=== PATIENT | male | born 1990 | race Caucasian/White ===

== ENCOUNTER 2017-02-10 17:52 | Emergency (ER) | payer BC ==
[2017-02-10 18:01] VITALS: TEMP 98.4
--- NOTE | 2017-02-10 18:06 | EDPHY ---
H & P Time Seen by Provider: 02/10/17 18:03 HPI/ROS: CHIEF COMPLAINT: Right knee pain HISTORY OF PRESENT ILLNESS: 26-year-old male in the ER via private vehicle complaining of acute right medial knee pain. History of right ACL repair in October 2016 by orthopedic surgeon Agustín. He is visiting [place] and was playing soccer earlier today felt acute right medial knee pain. He is able to bear weight albeit with pain. He also notes over the past several weeks believes he may have injured his meniscus notes that he has been having locking out issues. PHYSICAL EXAM (Prior to examination, patient consented to physical exam, hands were washed and my usual and customary physical exam procedures followed) 1) GENERAL: Well-developed, well-nourished, alert and oriented. Appears to be in no acute distress. 2) HEAD: Normocephalic 3) HEENT: Pupils equal, round, reactive to light bilaterally. 4) LUNGS: Breathing comfortably. 5) MUSCULOSKELETAL: Exam of the right knee shows soft tissue swelling. . No gross instability on exam. Tender to palpation medial knee. Compartments are soft. 6) SKIN: intact 7) VASCULAR: DP,PT pulses and cap refill present and brisk distally DIFFERENTIAL DIAGNOSIS: in no particular order including but not limited to fracture, sprain, compartment syndrome, septic arthritis, DVT Smoking Status: Never smoked Constitutional: Initial Vital Signs Temperature (C) 36.9 C 02/10/17 17:57 Heart Rate 79 02/10/17 17:57 Respiratory Rate 23 H 02/10/17 17:57 Blood Pressure 124/89 H 02/10/17 17:57 O2 Sat (%) 94 02/10/17 17:57 O2 Delivery Mode Room Air Allergies/Adverse Reactions: No Known Allergies Allergy (Unverified 02/10/17 17:57) Home Medications: Medication Instructions Recorded NK [No Known Home Meds] 02/10/17 MDM/Departure - MDM Diagnostics: Imaging Impressions Knee X-Ray 02/10/17 18:04 Impression: Nothing acute identified. Consider knee MRI to evaluate the ACL reconstruction integrity. Procedures: Procedure: Crutches indications for crutch use discussed with patient. Patient fitted for crutches by ER staff. Observed ambulating with crutches. I think the patient has the capacity to safely use crutches. Usual and customary crutch walking precautions provided Procedure: Splint A knee immobilizer splint was applied by ER device repair technician. After application of the splint I returned and re-examined the patient. The splint was adequately immobilizing the joint and distal to the splint the patient's circulation and sensation were intact. Patient shows no signs of compartment syndrome. Was given orthopedic precautions. ED Course/Re-evaluation: 6:15 p.m.: Discussed case with Dr. Kathleen Maher. I do not think that emergent MRI is currently indicated on this patient however he is concerned because he is traveling, will not be returning to [place] until February 20 has an appointment with his orthopedic surgeon jany on February 22 and is requesting MRI of his knee. He has been informed that if an MRI of the knee were to be performed in the emergency department this would more than likely not change the immediate disposition and plan, he has also been informed that his insurance may not approve payment for this, also informed that the MRI may not be read this evening as a musculoskeletal radiologist may not be available. He verbalized understanding of this and states that he would like an MRI of his knee with which will be ordered. 7:27 p.m.: Patient back from MRI. Informed by the radiologist Dr. Zuniga that the MRI would be read tomorrow by musculoskeletal strainer cleaner radiologist. Patient understands this. The patient has been given copy of his MRI. Given knee immobilizer, crutches, recommend follow up with orthopedic surgeon in [place] per his pre-existing appointment in 12 days. - Depart Disposition: Home, Routine, Self-Care Clinical Impression: Right medial knee pain Condition: Good Instructions: Knee Sprain (ED) Additional Instructions: Return to the ER immediately if you experience discoloration, have worsening pain, numbness, tingling, or any other symptoms that concern you. If you received x-rays in the emergency department today, be advised, that ligamentous , tendon, muscular, and other non-bony injury cannot be fully ruled out. Try to keep your affected extremity elevated above the level of your chest, and keep cold packs on the affected area, for the next 48 hours. Referrals: Follow-up, your orthopedic surgeon in [place] on 02/22 [Other] - As per Instructions Jamshid Ibrahim MD [Medical Doctor] - 2-3 days, call for appt. (Dr. Daniel Poole is a [facility]opedic surgeon)
[2017-02-10 19:50] VITALS: BP 142/92; PULSE 71; RESP 16; O2SAT 95
== END 2017-02-10 19:50 | disposition home or self-care (01) ==
DX: M25.561 Pain in right knee (principal)
CPT/HCPCS: L1830